=== PATIENT | female | born 1965 | race Caucasian/White ===

== ENCOUNTER 2023-08-22 07:27 | Emergency (ER) | payer MEDICAID ==
[~2023-08-22] VITALS: Ht 162.6 cm; Wt 95.3 kg
[2023-08-22 07:30] VITALS: BP 137/68; PULSE 98; RESP 14; TEMP 99.2; O2SAT 98
[2023-08-22] MEDS: NACL 0.9% 1,000 ML IV ONE ×2 (08:05→09:10)
[2023-08-22] MEDS: ONDANSETRON 4 MG/2 ML VIAL IVP ONE (08:08)
[2023-08-22] MEDS: MORPHINE SULFATE 4 MG/ML SYR IVP ONE (08:09)
[2023-08-22 08:13] LABS: BASOPHILS % (AUTO) 0.4 % (0.0-2.0); HEMATOCRIT 38.4 % (36-48); HEMOGLOBIN 13.3 g/dL (12.0-16.0); LYMPHOCYTES % (AUTO) 7.7 % (20.5-51.1); MEAN CORPUSCULAR HEMOGLOBIN 31 pg (27-31); MEAN CORPUSCULAR HGB CONC 35 g/dL (33-37); MEAN CORPUSCULAR VOLUME 88.6 fL (80-94); MONOCYTES # (AUTO) 1.1 K/uL (0.8-1.0); MONOCYTES % (AUTO) 8.6 % (1.7-9.3); NEUTROPHILS # (AUTO) 11.1 K/uL (1.8-7.7); NEUTROPHILS % (AUTO) 83.3 % (42.2-75.2); PLATELET COUNT (AUTO) 222 K/uL (140-450); RED BLOOD CELL COUNT(AUTO) 4.34 MIL/uL (4.20-5.40); RED CELL DISTRIBUTION WIDTH 12.9 % (11.6-13.7); WHITE BLOOD COUNT (AUTO) 13.3 K/uL (4.8-10.8)
[2023-08-22 08:29] LABS: CALCIUM 9.3 mg/dL (8.5-10.1); CARBON DIOXIDE 29.9 mmol/L (21-32); CREATININE 0.9 mg/dL (0.6-1.3)
[2023-08-22 08:31] LABS: POTASSIUM 2.9 mmol/L (3.5-5.1)
[2023-08-22 08:47] LABS: ALBUMIN 3.2 g/dL (3.4-5.0); BILIRUBIN,DIRECT 0.4 mg/dL (0.0-0.3); TOTAL BILIRUBIN 1.6 mg/dL (0.0-1.0); TOTAL PROTEIN, SERUM 7.6 g/dL (6.4-8.2)
[2023-08-22] MEDS: KCL 20 MEQ IN 100 mL PREMIX 100 ML IV ONE (09:04)
[2023-08-22 09:38] LABS: APPEARANCE,URINE CLEAR (CLEAR); BILIRUBIN,URINE NEGATIVE (NEGATIVE); BLOOD, URINE 1+ (NEGATIVE); COLOR,URINE YELLOW (YELLOW); LEUKOCYTE ESTERASE ,URINE 3+ (NEGATIVE); NITRITE, URINE POSITIVE (NEGATIVE); PH,URINE 6.5 (5.0-9.0); PROTEIN,URINE NEGATIVE (NEGATIVE); UGLUCOSE NEGATIVE (NEGATIVE)
[2023-08-22] MEDS ORDERED: IBUP-2218 PO (09:47)
[2023-08-22] MEDS ORDERED: ONDA-188 SL (09:47)
[2023-08-22] MEDS ORDERED: CEFP200T20 PO (09:47)
[2023-08-22] MEDS ORDERED: cefTRIAXone 1,000 MG VIAL ONE (09:59)
[2023-08-22] MEDS ORDERED: LIDOCAINE MPF 1% 5 ML ONE (09:59)
[2023-08-22 10:04] LABS: RBC,URINE 0-5 /HPF (0-5)
[2023-08-22] MEDS: cefTRIAXone 1,000 MG in LIDOCAINE MPF 1% 2.1 ML IM ONE (10:04)
[2023-08-22 10:06] LABS: BACTERIA,URINE >30 (MANY) /HPF (None Seen); SQUAMOUS EPITHELIAL CELL,UR 4-10 (MOD) /LPF (0-3 (FEW)); WBC,URINE >25 (MANY) /HPF (0-5)
[2023-08-22] MEDS: NACL 0.9% 500 ML IV ONE (10:39)
[2023-08-22 11:13] VITALS: BP 130/58; PULSE 88; RESP 17; TEMP 98.9; O2SAT 98
== END 2023-08-22 11:13 | disposition home or self-care (01) ==
LOC: MED 07:27
DX: N12 Tubulo-interstitial nephritis, not specified as acute or chronic (principal); E87.6 Hypokalemia; I10 Essential (primary) hypertension; Z79.899 Other long term (current) drug therapy
CPT/HCPCS: 36415; 74177; 80048; 80076; 81001; 82948; 83605; 83690; 85025; 87040; 87086; 93005; 96361; 96365; 96366; 96372; 96375; 99285; J0696; J2001; J2270; J2405; J3480; Q9967; J7030